=== PATIENT | male | born 1955 | race American Indian/Alaskan Native ===

== ENCOUNTER 2018-02-05 11:44 | Outpatient (CLI) | payer MEDICARE ==
--- NOTE | 2018-02-05 17:06 | Cat Scan Report ---
FINAL REPORT EXAM: CT ABDOMEN PELVIS WO CON HISTORY: FLANK PAIN TECHNIQUE: CT examination of the ABDOMEN without IV contrast CT examination of the PELVIS without IV contrast PRIORS: None. FINDINGS: Linear scar versus atelectasis in left lung base. Prior median sternotomy. Surgically absent gallbladder. Normal noncontrast appearance of the liver, right adrenal, pancreas, and spleen. Normal caliber abdominal aorta and IVC. Nonspecific fullness of the left adrenal gland may reflect hyperplasia. 1 mm and 2 mm nonobstructing right renal calculi. 3 mm nonobstructing left renal calculus. Otherwise normal-appearing kidneys and visible ureters. Pelvic ureters are obscured by adjacent anatomy, limiting the examination. No evidence of hydronephrosis. Intact anterior abdominal wall. No retroperitoneal adenopathy. No evidence of mesenteric mass. Normal-appearing stomach and duodenum. No small bowel distention in the abdomen and pelvis. Nonspecific prominence of scattered small bowel gas may reflect mild paralytic ileus. Nonspecific well-circumscribed 3.4 cm fluid collection in the anterior pelvis is difficult to assess without IV and oral contrast. It contains no air bubble. The most likely consideration is fluid within a small bowel loop. Differential includes lymphocele. Prostate appears enlarged. Nonspecific fullness of the seminal vesicles bilaterally. Normal-appearing rectum and sigmoid colon. No gross ascites or free air. Normal-appearing terminal ileum and appendix. Prominent stool and caliber from cecum to distal descending colon most compatible with constipation. IMPRESSION: 3.4 cm fluid collection in the anterior pelvis is difficult to assess without IV and oral contrast. It may be fluid within a small bowel loop. Differential includes lymphocele or abscess, although the it contains no air bubble Bilateral nonobstructing renal calculi without evidence of hydronephrosis or calculus in the visible portion of the ureters Prominent scattered small bowel gas and caliber may reflect paralytic ileus Prominent stool and caliber from cecum to distal descending colon most compatible with constipation Prostate appears enlarged and there is nonspecific fullness of the seminal vesicles Slight linear scar versus atelectasis in left lung base Left adrenal fullness may reflect hyperplasia
== END 2018-02-05 11:45 | disposition home or self-care (01) ==
LOC: CT 11:44
PROVIDERS: ATTEND Urology
DX: N20.0 Calculus of kidney (principal); Z90.49 Acquired absence of other specified parts of digestive tract; Z98.890 Other specified postprocedural states
CPT/HCPCS: 74176

== ENCOUNTER 2019-05-02 10:50 | Emergency (ER) | payer MEDICARE ==
[2019-05-02 11:45] LABS: Eosinophils # (Auto) 0.1 K/mm3 (0.0-0.4); Eosinophils % (Auto) 1.2 % (0.0-4.3); Hemoglobin 16.4 gm/dl (11.8-15.2); Lymphocytes # (Auto) 1.5 K/mm3 (1.2-5.4); Lymphocytes % (Auto) 32.8 % (13.4-35.0); Mean Corpuscular HGB Conc 33 % (32-34); Mean Corpuscular Volume 94 fl (84-94); Monocytes # (Auto) 0.4 K/mm3 (0.0-0.8); Monocytes % (Auto) 8.6 % (0.0-7.3); Platelet Count 128 K/mm3 (140-440); Red Blood Count 5.34 M/mm3 (3.65-5.03); Red Cell Distribution Width 13.5 % (13.2-15.2)
[2019-05-02 11:50] LABS: Bacteria,Urine 1+ /HPF (Negative); Bilirubin,Urine NEG (Negative); Blood,Urine LG (Negative); Color,Urine Amber (Yellow); Urobilinogen,Urine < 2.0 mg/dL (<2.0)
[2019-05-02 11:56] LABS: Calcium 9.4 mg/dL (8.4-10.2)
[2019-05-02 11:57] LABS: RBC,Urine > 182.0 /HPF (0.0-6.0); WBC,Urine > 182.0 /HPF (0.0-6.0)
--- NOTE | 2019-05-02 12:56 | Cat Scan Report ---
CT ABDOMEN AND PELVIS WITHOUT CONTRAST INDICATION: right flank pain, hematuria. TECHNIQUE: Axial CT images were obtained through the abdomen and pelvis without IV contrast. All CT scans at [facility] location are performed using CT dose reduction for ALARA by means of automated exposure control. COMPARISON: CT abdomen pelvis 02/05/2018 FINDINGS: LOWER CHEST: Linear bibasilar scarring/atelectasis. LIVER: No significant abnormality. GALLBLADDER: Surgically absent BILE DUCTS: No significant abnormality. PANCREAS: No significant abnormality. SPLEEN: No significant abnormality. ADRENALS: Hypodense 1.2 cm left adrenal nodule with a few density of -12 is diagnostic for adenoma an d unchanged RIGHT KIDNEY and URETER: 4 nonobstructing punctate 1 to 2 mm right intrarenal stones. No hydronephros is or ureteral calculus LEFT KIDNEY and URETER: 2 nonobstructing left intrarenal stones measuring 2 mm. No hydronephrosis or ureteral calculi STOMACH and SMALL BOWEL: No significant abnormality. COLON: No significant abnormality. APPENDIX: Well-visualized and normal PERITONEUM: No free fluid. No free air. No fluid collection. LYMPH NODES: No significant adenopathy. AORTA and ARTERIES: No significant abnormality. IVC and VEINS: No significant abnormality. URINARY BLADDER: No significant abnormality. REPRODUCTIVE ORGANS: Enlarged prostate measuring 6 cm transversely ADDITIONAL FINDINGS: None. SKELETAL SYSTEM: Osteopenia with old compression fracture involving superior endplate of L4, unchange d moderately advanced discogenic degenerative disease L5-S1, unchanged IMPRESSION: 1. Bilateral nephrolithiasis. No ureteral stone or hydronephrosis. 2. Enlarged prostate. 3. Osteopenia with old L4 compression fracture, unchanged 4. Stable benign 1.2 cm left adrenal adenoma Signer Name: Juan Herndon MD Signed: 05/02/2019 12:52 PM Workstation Name: [id number]
--- NOTE | 2019-05-02 13:08 | Emergency Department Report ---
ED Male HPI - General Chief complaint: Urogenital-Male Stated complaint: BLOOD IN URINE Time Seen by Provider: 05/02/19 11:10 Source: patient Mode of arrival: Ambulatory Limitations: No Limitations - History of Present Illness Initial comments: Patient is a 63-year-old male with past medical history kidney stones who is here complaining of hematuria for the last week. Patient states on 724 he was started on Cipro for UTI. By Dr. Bowles his urologist. Patient has taken all of these pills. Patient states he still has urinary frequency and some dysuria. He denies any testicular pain or swelling or bone pain at this time but does state that occasionally will have some right flank pain. Patient states he had a large amount of hematuria this morning which prompted him to come to the emergency department. Patient's next urology appointment is not for another 20 days. - Related Data Home Medications Medication Instructions Recorded Confirmed Last Taken Abacavir Sulfate/Lamivudine 1 each PO DAILY 03/11/16 03/14/16 03/13/16 09:00 [Epzicom TAB] Acyclovir [Zovirax Tab] 400 mg PO DAILY 03/11/16 03/14/16 03/13/16 09:00 Aspirin EC [Aspirin Enteric Coated 81 mg PO QDAY 03/11/16 03/11/16 03/10/16 TAB] Atazanavir Sulfate [Reyataz] 300 mg PO QDAY 03/11/16 03/14/16 03/13/16 09:00 Carvedilol [Coreg] 3.125 mg PO BID 03/11/16 03/14/16 03/14/16 08:30 Lisinopril [Zestril] 5 mg PO QDAY 03/11/16 03/14/16 03/14/16 08:30 Ritonavir [Norvir] 100 mg PO DAILY 03/11/16 03/14/16 03/13/16 09:00 Allergies Allergy/AdvReac Type Severity Reaction Status Date / Time Iodinated Contrast- Oral and AdvReac hypothermia Verified 03/11/16 10:08 IV Dye [Iodinated Contrast Media - IV Dye] ED Review of Systems ROS: Stated complaint: BLOOD IN URINE Other details as noted in HPI Comment: All other systems reviewed and negative ED Past Medical Hx - Past Medical History Hx Hypertension: No Hx Heart Attack/AMI: No Hx Liver Disease: No Hx Seizures: No Hx Asthma: No Hx HIV: Yes (1996) Additional medical history: hematuria - Surgical History Hx Pacemaker: Yes (2008) Hx Cholecystectomy: Yes - Social History Smoking Status: Former Smoker Substance Use Type: None - Medications Home Medications: Home Medications Medication Instructions Recorded Confirmed Last Taken Type Abacavir Sulfate/Lamivudine 1 each PO DAILY 03/11/16 03/14/16 03/13/16 09:00 History [Epzicom TAB] Acyclovir [Zovirax Tab] 400 mg PO DAILY 03/11/16 03/14/16 03/13/16 09:00 History Aspirin EC [Aspirin Enteric Coated 81 mg PO QDAY 03/11/16 03/11/16 03/10/16 History TAB] Atazanavir Sulfate [Reyataz] 300 mg PO QDAY 03/11/16 03/14/16 03/13/16 09:00 History Carvedilol [Coreg] 3.125 mg PO BID 03/11/16 03/14/16 03/14/16 08:30 History Lisinopril [Zestril] 5 mg PO QDAY 03/11/16 03/14/16 03/14/16 08:30 History Ritonavir [Norvir] 100 mg PO DAILY 03/11/16 03/14/16 03/13/16 09:00 History ED Physical Exam - General Limitations: No Limitations General appearance: alert, in no apparent distress - Head Head exam: Present: atraumatic, normocephalic - Eye Eye exam: Present: normal appearance - ENT ENT exam: Present: mucous membranes moist - Neck Neck exam: Present: normal inspection - Respiratory Respiratory exam: Present: normal lung sounds bilaterally. Absent: respiratory distress, wheezes, rales, rhonchi - Cardiovascular Cardiovascular Exam: Present: regular rate, normal rhythm. Absent: systolic murmur, diastolic murmur, rubs, gallop - GI/Abdominal GI/Abdominal exam: Present: soft, normal bowel sounds. Absent: distended, tenderness, guarding, rebound - Rectal Rectal exam: Present: deferred - Extremities Exam Extremities exam: Present: normal inspection - Back Exam Back exam: Present: normal inspection - Neurological Exam Neurological exam: Present: alert, oriented X3 - Psychiatric Psychiatric exam: Present: normal affect, normal mood - Skin Skin exam: Present: warm, dry, intact, normal color. Absent: rash ED Course Vital Signs 05/02/19 10:55 Temperature 99.5 F Pulse Rate 60 Respiratory 16 Rate O2 Sat by Pulse 100 Oximetry ED Medical Decision Making - Lab Data Result diagrams: 05/02/19 11:26 05/02/19 11:26 Lab Results 05/02/19 05/02/19 05/02/19 Range/Units 10:59 11:26 11:26 WBC 4.5 (4.5-11.0) K/mm3 RBC 5.34 H (3.65-5.03) M/mm3 Hgb 16.4 H (11.8-15.2) gm/dl Hct 50.0 H (35.5-45.6) % MCV 94 (84-94) fl MCH 31 (28-32) pg MCHC 33 (32-34) % RDW 13.5 (13.2-15.2) % Plt Count 128 L (140-440) K/mm3 Lymph % (Auto) 32.8 (13.4-35.0) % [place] % (Auto) 8.6 H (0.0-7.3) % Eos % (Auto) 1.2 (0.0-4.3) % Baso % (Auto) 1.0 (0.0-1.8) % Lymph # 1.5 (1.2-5.4) K/mm3 [place] # 0.4 (0.0-0.8) K/mm3 Eos # 0.1 (0.0-0.4) K/mm3 Baso # 0.0 (0.0-0.1) K/mm3 Seg Neutrophils % 56.4 (40.0-70.0) % Seg Neutrophils # 2.6 (1.8-7.7) K/mm3 Sodium 140 (137-145) mmol/L Potassium 3.9 (3.6-5.0) mmol/L Chloride 102.8 (98-107) mmol/L Carbon Dioxide 27 (22-30) mmol/L Anion Gap 14 mmol/L BUN 14 (9-20) mg/dL Creatinine 1.6 H (0.8-1.5) mg/dL Estimated GFR 53 ml/min BUN/Creatinine Ratio 9 % Glucose 111 H (75-100) mg/dL Calcium 9.4 (8.4-10.2) mg/dL Urine Color [place] (Yellow) Urine Turbidity Cloudy (Clear) Urine pH 6.0 (5.0-7.0) Ur Specific [place] 1.013 (1.003-1.030) Urine Protein 30 mg/dl (Negative) mg/dL Urine Glucose (UA) Neg (Negative) mg/dL Urine Ketones Neg (Negative) mg/dL Urine Blood Lg (Negative) Urine Nitrite Neg (Negative) Urine Bilirubin Neg (Negative) Urine Urobilinogen < 2.0 (<2.0) mg/dL Ur Leukocyte Esterase Lg (Negative) Urine WBC (Auto) > 182.0 H (0.0-6.0) /HPF Urine RBC (Auto) > 182.0 (0.0-6.0) /HPF Urine Bacteria (Auto) 1+ (Negative) /HPF Ur Transition Epith Cell 2 /HPF - Radiology Data [facility] [address] [place] [address] Cat Scan Report Signed Patient: DONI CORONADO MR#: [id number] : 1955 Acct:[id number] Age/Sex: 63 / M ADM Date: 05/02/19 Loc: ED Attending Dr: Ordering Physician: POLO ANTONIO MD Date of Service: 05/02/19 Procedure(s): CT abdomen pelvis wo con Accession Number(s): [id number] cc: POLO ANTONIO MD CT ABDOMEN AND PELVIS WITHOUT CONTRAST INDICATION: right flank pain, hematuria. TECHNIQUE: Axial CT images were obtained through the abdomen and pelvis without IV contrast. All CT scans at this location are performed using CT dose reduction for ALARA by means of automated exposure control. COMPARISON: CT abdomen pelvis 02/05/2018 FINDINGS: LOWER CHEST: Linear bibasilar scarring/atelectasis. LIVER: No significant abnormality. GALLBLADDER: Surgically absent BILE DUCTS: No significant abnormality. PANCREAS: No significant abnormality. SPLEEN: No significant abnormality. ADRENALS: Hypodense 1.2 cm left adrenal nodule with a few density of -12 is diagnostic for adenoma and unchanged RIGHT KIDNEY and URETER: 4 nonobstructing punctate 1 to 2 mm right intrarenal stones. No hydronephrosis or ureteral calculus LEFT KIDNEY and URETER: 2 nonobstructing left intrarenal stones measuring 2 mm. No hydronephrosis or ureteral calculi STOMACH and SMALL BOWEL: No significant abnormality. COLON: No significant abnormality. APPENDIX: Well-visualized and normal PERITONEUM: No free fluid. No free air. No fluid collection. LYMPH NODES: No significant adenopathy. AORTA and ARTERIES: No significant abnormality. IVC and VEINS: No significant abnormality. URINARY BLADDER: No significant abnormality. REPRODUCTIVE ORGANS: Enlarged prostate measuring 6 cm transversely ADDITIONAL FINDINGS: None. SKELETAL SYSTEM: Osteopenia with old compression fracture involving superior endplate of L4, unchanged moderately advanced discogenic degenerative disease L5-S1, unchanged IMPRESSION: 1. Bilateral nephrolithiasis. No ureteral stone or hydronephrosis. 2. Enlarged prostate. 3. Osteopenia with old L4 compression fracture, unchanged 4. Stable benign 1.2 cm left adrenal adenoma Signer Name: Juan Herndon MD Signed: 05/02/2019 12:52 PM Workstation Name: [id number] Transcribed By: TL Dictated By: Juan Herndon MD Electronically Authenticated By: Juan Herndon MD Signed Date/Time: 05/02/19 1252 - Medical Decision Making Patient is a 63-year-old -[place] male who is presenting with hematuria and dysuria. Patient has intermittent right flank pain. Patient has no obstructive uropathy at this time but does have some kidney stones in the kidneys. It could have been passing small stones causing his right flank pain. Patient despite outpatient antibiotics and does continue to have a urinary tract infection with large amount of WBCs and RBCs. Patient was on Cipro and this will be changed to Levaquin since it has the same viral fell ability IV and by mouth. Patient to double cover her with Macrobid. Patient is to follow-up with his urologist. Patient to call in the morning for appointment. Critical care attestation.: If time is entered above; I have spent that time in minutes in the direct care o f this critically ill patient, excluding procedure time. ED Disposition Clinical Impression: Acute cystitis with hematuria Disposition: TO HOME OR SELFCARE Is pt being admited?: No Does the pt Need Aspirin: No Condition: Stable Instructions: Urinary Tract Infection in Men (ED) Referrals: SAMIR OROZCO MD [Staff Physician] - 3-5 Days Time of Disposition: 13:08
== END 2019-05-02 13:15 | disposition home or self-care (01) ==
LOC: ED 10:50
DX: N30.01 Acute cystitis with hematuria (principal); Z21 Asymptomatic human immunodeficiency virus [HIV] infection status; Z95.0 Presence of cardiac pacemaker; Z90.49 Acquired absence of other specified parts of digestive tract; Z87.891 Personal history of nicotine dependence; Z79.899 Other long term (current) drug therapy; Z91.041 Radiographic dye allergy status
CPT/HCPCS: 36415; 74176; 80048; 81001; 85025